=== PATIENT | male | born 2000 | race Caucasian/White ===

== ENCOUNTER → 2020-06-08 | Outpatient (CLI) | payer MEDICAID ==
--- NOTE | 2020-06-08 11:23 | US ---
EXAMINATION TYPE: US groin LT DATE OF EXAM: 06/08/2020 COMPARISON: NONE CLINICAL HISTORY: K40.90 unilateral inguinal hernia, without obstruction. No ultrasound evidence of left inguinal hernia. IMPRESSION: No ultrasound evidence of hernia. Correlate with CT scan as chronically warranted.
== END | disposition home or self-care (01) ==
LOC: RADUSWWP 10:52
PROVIDERS: ATTEND Family Medicine
DX: K40.90 Unilateral inguinal hernia, without obstruction or gangrene, not specified as recurrent (principal)